=== PATIENT | male | born 1945 | race Caucasian/White ===

== ENCOUNTER 2019-09-24 09:30 | Inpatient (IN) | payer OTHER ==
[~2019-09-24] VITALS: Ht 175.3 cm; Wt 88.5 kg
[2019-09-24 10:19] LABS: CARBON DIOXIDE 28 mmol/L (21-32); CHLORIDE 101 mmol/L (101-111); CREATININE 1.1 mg/dL (0.5-1.5); GLOMERULAR FILTR. RATE CALC 70 mL/min (>60); GLUCOSE,RANDOM 263 mg/dL (70-105); POTASSIUM 4.9 mmol/L (3.5-5.1); SODIUM SERUM 136 mmol/L (136-145); UREA NITROGEN, BLOOD 34 mg/dL (7-18)
[2019-09-24 10:23] LABS: ALANINE AMINOTRANSFERASE 110 U/L (12-78); ALBUMIN 2.1 g/dL (3.5-5.0); ASPARTATE AMINOTRANSFERASE 53 U/L (10-37); BILIRUBIN,DIRECT 0.6 mg/dL (0.0-0.3); BILIRUBIN,TOTAL 1.3 mg/dL (0.2-1.0); CREATINE KINASE, TOTAL 45 U/L (21-232); LIPASE < 50 U/L (114-286); TOTAL PROTEIN, SERUM 5.8 g/dL (6.0-8.3)
[2019-09-24 10:24] LABS: INR 1.44 (0.85-1.15); PARTIAL THROMBOPLASTIN TIME 44.7 SEC (26.3-35.5); PROTHROMBIN TIME 14.9 SEC (9.6-11.6)
[2019-09-24 10:31] LABS: BASOPHILS % (AUTO) 0.3 % (0.0-5.0); EOSINOPHILS % (AUTO) 1.3 % (0.0-8.0); HEMATOCRIT 31.4 % (42-54); LYMPHOCYTES % (AUTO) 32.1 % (21.0-51.0); MEAN CORPUSCULAR HEMOGLOBIN 29.6 pg (27.0-33.0); MEAN CORPUSCULAR VOLUME 87.3 fL (79-99); MONOCYTES % (AUTO) 4.6 % (3.0-13.0); NEUTROPHILS % (AUTO) 61.7 % (40.0-77.0); NUCLEATED RED BLOOD CELLS 0.2 % (0.0-0.19); PLATELET COUNT (AUTO) 104 K/uL (130-400); RED BLOOD CELL COUNT(AUTO) 3.59 MIL/uL (4.50-6.20)
[2019-09-24 10:34] LABS: WHITE BLOOD COUNT (AUTO) 0.3 K/uL (4.8-10.8)
[2019-09-24] MEDS ORDERED: ONDANSETRON HCL 4 MG/2 ML VIAL ONE (10:46)
[2019-09-24] MEDS ORDERED: ZOSYN 3.375GM+NS 50ML 50 ML IV ONE (11:13)
[2019-09-24] MEDS ORDERED: SODIUM CHLORIDE 0.9% 500ML 500 ML IV ONE (11:14)
[2019-09-24] MEDS: TBO-FILGRASTIM 480 MCG/0.8 ML ML SQ SCH (11:30)
[2019-09-24] MEDS ORDERED: TBO-FILGRASTIM 480 MCG/0.8 ML ML SQ SCH (11:30)
[2019-09-24] MEDS ORDERED: SODIUM CHLORIDE 0.9% 1000ML 1,000 ML IV ONE ×3 (13:02→18:13)
[2019-09-24] MEDS ORDERED: DEXAMETHASONE SOD PHOSPHATE 10MG/ML 1ML VIAL ONE (13:47)
[2019-09-24] MEDS ORDERED: METOCLOPRAMIDE 10 MG/2 ML VIAL ONE (13:47)
[2019-09-24] MEDS ORDERED: MORPHINE SULFATE 4 MG/1ML SYG IV PRN (14:30)
[2019-09-24] MEDS ORDERED: ONDANSETRON HCL 4 MG/2 ML VIAL IVP PRN (14:30)
[2019-09-24] MEDS ORDERED: ACETAMINOPHEN 325 MG TAB PO PRN (14:30)
[2019-09-24] MEDS ORDERED: MORPHINE SULFATE 2 MG/ML 1ML SYG IVP PRN (14:30)
[2019-09-24] MEDS ORDERED: MORPHINE SULFATE 4 MG/1ML SYG ONE (16:10)
[2019-09-24 16:23] LABS: APPEARANCE,URINE Clear (CLEAR); BILIRUBIN,URINE Small (NEGATIVE); COLOR,URINE Dark Yellow (YELLOW); GLUCOSE, URINE (UA) TRACE mg/dL (NEGATIVE); KETONES,URINE Trace mg/dL (NEGATIVE); LEUKOCYTE ESTERASE ,URINE Trace (NEGATIVE); NITRATE,URINE Negative (NEGATIVE); OCCULT BLOOD,URINE Negative (NEGATIVE); PH,URINE 5.5 (5.0-8.0); PROTEIN,URINE POS 1+ mg/dL (NEGATIVE)
[2019-09-24 16:58] LABS: BACTERIA,URINE Few /HPF (None Seen)
[2019-09-24 16:59] LABS: MUCUS,URINE Few LPF (None Seen)
[2019-09-24] MEDS ORDERED: ACETAMINOPHEN ELIXIR 650 MG/20.3 ML UDCUP ONE (17:11)
[2019-09-24] MEDS ORDERED: METOCLOPRAMIDE 10 MG/2 ML VIAL IVP PRN (18:15)
[2019-09-24] MEDS ORDERED: PANTOPRAZOLE SODIUM 80 MG in NS 100ML IVP SCH (18:15)
[2019-09-24] MEDS ORDERED: OCTREOTIDE ACETATE 500 MCG in SODIUM CHLORIDE 0.9% 97.5 ML IV PRN (18:15)
[2019-09-24] MEDS ORDERED: MAG HYDROX/AL HYDROX/SIMETH 30 ML, LIDOCAINE HCL 2% VISCOUS 30 ML, DIPHENHYDRAMINE HCL ... PO PRN ×3 (18:15)
[2019-09-24] MEDS: SODIUM CHLORIDE 0.9% 1000ML 1,000 ML IV SCH (21:20)
[2019-09-24] MEDS ORDERED: NOREPINEPHRINE BITARTRATE 1 MG/1 ML ML IV ONE (22:03)
[2019-09-24] MEDS ORDERED: SODIUM CHLORIDE 0.9% 250 ML IV ONE (22:04)
[2019-09-24 23:24] VITALS: BP 88/49
[2019-09-24 23:31] VITALS: BP 81/47
[2019-09-24 23:45] VITALS: BP 79/44
[2019-09-25] VITALS (32 sets, daily range): BP systolic 81–145; BP diastolic 41–73
[2019-09-25 00:02] LABS: HEMATOCRIT 29.5 % (42-54)
[2019-09-25] MEDS: ZOSYN 3.375GM+NS 50ML 50 ML IV SCH ×4 (01:54→23:53)
[2019-09-25] MEDS ORDERED: LIDOCAINE HCL 2% VISCOUS 15 ML UDCUP ONE (02:34)
[2019-09-25] MEDS ORDERED: MAG HYDROX/AL HYDROX/SIMETH ES 30 ML SUSP UDCUP ONE (02:35)
[2019-09-25] MEDS ORDERED: SODIUM CHLORIDE 0.9% 200 ML IV ONE (04:05)
[2019-09-25] MEDS ORDERED: OCTREOTIDE ACETATE 200 MCG/ML 5 ML VIAL ONE (04:37)
[2019-09-25] MEDS: SODIUM CHLORIDE 0.9% 1000ML 1,000 ML IV SCH ×6 (06:22→22:18)
[2019-09-25] MEDS: TBO-FILGRASTIM 480 MCG/0.8 ML ML SQ SCH (08:42)
[2019-09-25] MEDS ORDERED: LOPERAMIDE HCL 2 MG CAP PO PRN (11:15)
[2019-09-25] MEDS ORDERED: LOPERAMIDE HCL 2 MG CAP PO SCH (12:45)
[2019-09-25] MEDS ORDERED: FAMO20TA8 PO (13:12)
[2019-09-25] MEDS ORDERED: LOPE2CAP PO (13:12)
[2019-09-25] MEDS ORDERED: CREON12 PO (13:12)
[2019-09-25] MEDS ORDERED: TRAM-355 PO (13:12)
[2019-09-25] MEDS ORDERED: PANT40TA25 PO (13:12)
[2019-09-25] MEDS ORDERED: METF-446 PO (13:12)
[2019-09-25] MEDS ORDERED: GUAI400T79 PO (13:12)
[2019-09-25] MEDS ORDERED: ATOR10 PO (13:12)
[2019-09-25] MEDS ORDERED: APIX5TAB PO (13:12)
[2019-09-25] MEDS ORDERED: ONDA8TAB12 PO (13:12)
[2019-09-25] MEDS ORDERED: SLOMG PO (13:12)
[2019-09-25] MEDS ORDERED: LOSA100T58 PO (13:12)
--- NOTE | 2019-09-25 16:50 | NUR ---
DC Plan Discussed dcp with patient and daughter Richa at bedside. Patient deferred to daughter to answer questions. States independent up to a few months ago. Now has fallen in last 6 months. Known diagnosis of Stage IV Pancreatic CA. Patient hiccuping during interview. CM reported this to bedside nurse MYNOR who stated PMD pending to order thorazine. Updated patient and daughter regarding this. Case discussed with PMD. States to follow oncologies recommendations. Anticipate dcp home with or without hospice vs SNF/IRU. CD Addendum: 09/25/19 at 1914 by REMINGTON TURNER CM Amended: Links added.
[2019-09-25] MEDS: PANTOPRAZOLE 40 MG/VIAL IVP SCH (20:14)
[2019-09-25] MEDS ORDERED: SODIUM CHLORIDE 3% FOR INHALATION 4 ML/AMP VIAL.NEB IH ONE (21:38)
[2019-09-26] VITALS (43 sets, daily range): BP systolic 69–132; BP diastolic 28–73
[2019-09-26] MEDS: SODIUM CHLORIDE 0.9% 1000ML 1,000 ML IV SCH ×6 (00:35→23:41)
[2019-09-26] MEDS ORDERED: SODIUM CHLORIDE 3% FOR INHALATION 4 ML/AMP VIAL.NEB IH ONE (01:45)
[2019-09-26 03:43] LABS: BASOPHILS % (AUTO) 0.1 % (0.0-5.0); EOSINOPHILS % (AUTO) 0.1 % (0.0-8.0); HEMATOCRIT 27.3 % (42-54); LYMPHOCYTES % (AUTO) 21.5 % (21.0-51.0); MEAN CORPUSCULAR HEMOGLOBIN 30.1 pg (27.0-33.0); MEAN CORPUSCULAR HGB CONC 34.2 g/dL (32.0-36.0); MEAN CORPUSCULAR VOLUME 88.1 fL (79-99); MONOCYTES % (AUTO) 3.9 % (3.0-13.0); NEUTROPHILS % (AUTO) 74.4 % (40.0-77.0); NUCLEATED RED BLOOD CELLS 1.4 % (0.0-0.19); PLATELET COUNT (AUTO) 94 K/uL (130-400)
[2019-09-26 03:47] LABS: WHITE BLOOD COUNT (AUTO) 0.5 K/uL (4.8-10.8)
[2019-09-26 03:59] LABS: ALBUMIN 1.5 g/dL (3.5-5.0); BILIRUBIN,TOTAL 0.7 mg/dL (0.2-1.0); CREATININE 0.9 mg/dL (0.5-1.5); MAGNESIUM 1.9 mg/dL (1.80-2.40); PHOSPHORUS 1.8 mg/dL (2.5-4.9); POTASSIUM 3.5 mmol/L (3.5-5.1); TOTAL PROTEIN, SERUM 4.7 g/dL (6.0-8.3)
--- NOTE | 2019-09-26 05:55 | NUR ---
Patient straining to use urinal. Went into SVT 170's sustained. Call placed Hospitalist lubrication technician Hanh Emanuel. Patient converted back to sinus rate 90's to low 100's. Patient talking, moving all extremities. No c/o pain, sob. No new orders at this time
[2019-09-26] MEDS: NOREPINEPHRINE 4MG/NS 250ML IV SCH ×4 (06:50→23:44)
[2019-09-26] MEDS ORDERED: LIDOCAINE HCL-MPF 1% 2ML VIAL IV PRN (08:00)
[2019-09-26] MEDS ORDERED: POTASSIUM PHOS 15 mMOL+NS250ML 250 ML IV PRN (08:00)
[2019-09-26] MEDS ORDERED: POTASSIUM CHLORIDE 20MEQ/100ML 100 ML IV PRN (08:00)
[2019-09-26] MEDS ORDERED: HYDROMORPHONE 1 MG/1 ML AMP IVP PRN (08:00)
[2019-09-26] MEDS ORDERED: MAGNESIUM 2GM PREMIX 50ML 50 ML IV PRN (08:00)
[2019-09-26] MEDS: PANTOPRAZOLE 40 MG/VIAL IVP SCH ×2 (08:05→20:13)
[2019-09-26] MEDS: TBO-FILGRASTIM 480 MCG/0.8 ML ML SQ SCH (08:18)
[2019-09-26] MEDS: ZOSYN 3.375GM+NS 50ML 50 ML IV SCH ×2 (08:19→18:22)
--- NOTE | 2019-09-26 09:45 | NUR ---
Geraldine DIRECTOR OF MANUFACTURING OPERATIONS here to see patient. Made aware of Hypotension, and Sinus Tach/SVT episodes. Also, requested cortisol level in an effort to see if steroids is beneficial at this time. Stated she feels steroids is appropriate at this time and will place order for steroids. Also, she spoke c/ and Son at bedside in an effort to give them a full idea of what is going on/Presentation of patient. Family is contemplating withdrawing pressors. However, all Family will be here tomorrow and will address it with them. Pending for family to give ok to withdraw care at this time.
[2019-09-26] MEDS ORDERED: HYDROMORPHONE HCL 0.5 MG/0.5 ML ML IVP PRN (10:00)
[2019-09-26] MEDS ORDERED: VANCOMYCIN PROTOCOL PER PHARMACY IV SCH (10:00)
[2019-09-26] MEDS ORDERED: VANCOMYCIN 1.5 GM in SODIUM CHLORIDE 0.9% 250 ML IV ONE (10:00)
[2019-09-26 10:45] LABS: INR 1.33 (0.85-1.15); PARTIAL THROMBOPLASTIN TIME 47.5 SEC (26.3-35.5); PROTHROMBIN TIME 13.8 SEC (9.6-11.6)
[2019-09-26] MEDS ORDERED: METHYLPREDNISOLONE SOD SUCC 125MG/2ML VIAL IVP SCH (10:45)
--- NOTE | 2019-09-26 10:45 | NUR ---
Dr. Lyon here to see patient. Made aware of 2,250ml bolus over PM shift. Stated to give another 2L bolus. Made aware of patient DNR status as well as Levophed on board.
[2019-09-26] MEDS ORDERED: PHARMACY COMMUNICATION MISC SCH (11:00)
--- NOTE | 2019-09-26 11:10 | NUR ---
Called pharmacy: Spoke to Heather. Made aware of Pending Leoncio Perry, and Requested another bag of Levophed 4mg/250ml. Pending medications to be brought at this time.
[2019-09-26] MEDS ORDERED: SODIUM CHLORIDE 0.9% 1000ML 1,000 ML IV SCH (11:15)
[2019-09-26] MEDS ORDERED: COMPOUND IV REFRIGERATED 1 EACH IVSOLN MISC PRN (11:15)
--- NOTE | 2019-09-26 13:45 | NUR ---
PICC LINE INSERTION PICC LINE NURSE HERE TO PLACE PICC LINE. CONSENT COMPLETED C/ , C/ BOTH PICC LINE NURSE AND PRIMARY NURSE PRESENT. FAMILY ASKED TO WAIT APPROXIMATELY 1HR FOR INSERTION AND PLACEMENT VERIFICATION C/ CXR 1VIEW. WILL MAKE FAMILY AWARE ONCE PICC LINE INSERTION IS DONE AND PLACEMENT IS CONFIRMED.
[2019-09-26] MEDS: FLUCONAZOLE 400 MG/NS 200 ML 200 ML IV SCH (16:00)
--- NOTE | 2019-09-26 16:00 | NUR ---
Dr. Thompson came to see patient. Made aware of status on Levophed increasing from PM shift. NS bolus's X3. Liquid BM's c/ Neg C-Diff. Also, made aware of possible withdrawl of care tomorrow post family talk.-As per . NO changes in [place] at this time.
[2019-09-26] MEDS: METHYLPREDNISOLONE SOD SUCC 40MG/ML 1ML IVP SCH (16:17)
--- NOTE | 2019-09-26 16:54 | NUR ---
Wound Photo Taken Patient in brief. Cleaned patient, applied Allivyn to coccyx, and sacrum. Stage II cleaned, and covered c/ Allivyn. Photo in chart. Family made aware.
--- NOTE | 2019-09-26 17:42 | NUR ---
Pain Management asked if I can give pain medication to patient. Patient asked if he was in pain. Patient stated no pain at this time. Will evaluate again at a later time.
--- NOTE | 2019-09-26 19:03 | NUR ---
HandOff: Report given to Julienne Del Cid RN
[2019-09-26] MEDS: HYDROMORPHONE 1 MG/1 ML AMP IVP PRN (19:09)
[2019-09-26] MEDS: VANCOMYCIN 750MG + NS 250 ML IV SCH ×2 (20:14)
--- NOTE | 2019-09-26 22:58 | NUR ---
Tim RHODES NP PATIENT WITH ELEVATED HR 142 -EKG CONFIRMED A FIB RVR, BP 90/52ON LEVOPHED @ 16 MCG/MIN. NEW ORDER FOR CARDIZEM 30 MG PO X 1.
[2019-09-26] MEDS ORDERED: DILTIAZEM HCL 60 MG TABLET PO SCH (23:00)
[2019-09-27] VITALS (40 sets, daily range): BP systolic 79–194; BP diastolic 39–103
[2019-09-27] MEDS: ZOSYN 3.375GM+NS 50ML 50 ML IV SCH ×2 (01:15→08:24)
[2019-09-27] MEDS: METHYLPREDNISOLONE SOD SUCC 40MG/ML 1ML IVP SCH ×2 (01:15→08:18)
[2019-09-27 03:48] LABS: BASOPHILS % (AUTO) 0.1 % (0.0-5.0); HEMATOCRIT 29.2 % (42-54); LYMPHOCYTES % (AUTO) 7.5 % (21.0-51.0); MEAN CORPUSCULAR HEMOGLOBIN 29.5 pg (27.0-33.0); MEAN CORPUSCULAR HGB CONC 33.7 g/dL (32.0-36.0); MEAN CORPUSCULAR VOLUME 87.6 fL (79-99); NEUTROPHILS % (AUTO) 89.4 % (40.0-77.0); PLATELET COUNT (AUTO) 109 K/uL (130-400); RED BLOOD CELL COUNT(AUTO) 3.34 MIL/uL (4.50-6.20); RED CELL DISTRIBUTION WIDTH 13.9 % (11.0-15.5); WHITE BLOOD COUNT (AUTO) 1.4 K/uL (4.8-10.8)
[2019-09-27] MEDS: HYDROMORPHONE 1 MG/1 ML AMP IVP PRN ×3 (03:53→17:15)
[2019-09-27 04:01] LABS: CREATININE 0.9 mg/dL (0.5-1.5); POTASSIUM 3.8 mmol/L (3.5-5.1)
[2019-09-27] MEDS: NOREPINEPHRINE 4MG/NS 250ML IV SCH ×3 (05:12→15:30)
[2019-09-27] MEDS: PANTOPRAZOLE 40 MG/VIAL IVP SCH (08:18)
[2019-09-27] MEDS: TBO-FILGRASTIM 480 MCG/0.8 ML ML SQ SCH (08:22)
[2019-09-27] MEDS: VANCOMYCIN 750MG + NS 250 ML IV SCH ×2 (08:24)
[2019-09-27] MEDS: FLUCONAZOLE 400 MG/NS 200 ML 200 ML IV SCH (12:36)
[2019-09-27] MEDS: SODIUM CHLORIDE 0.9% 1000ML 1,000 ML IV SCH ×2 (12:36→13:37)
[2019-09-27] MEDS ORDERED: LORAZEPAM 2 MG/ML 1 ML VIAL IM PRN (13:00)
[2019-09-27] MEDS: MORPHINE SULFATE 2 MG/ML 1ML SYG IVP PRN ×2 (13:37→16:20)
--- NOTE | 2019-09-27 14:49 | NUR ---
EMOTIONAL SUPPORT Sw met with pt's family. Per Daughter in law, family is waiting for 1 last grand daughter to arrive, and she is 200 miles away still. Family states plan is to stop medication and start comfort measures. per family, doctors do not feel pt will survive very long after medications are stopped. Sw educated on inpt hospice. Plan is to wait 24 hrs after meds are stopped and see if pt survives. If he does, Sw to begin inpt hospice referral. Sw to f/u and assist as needed
[2019-09-27] MEDS ORDERED: IPRATROPIUM 0.5 MG/2.5 ML INH IH SCH (15:15)
--- NOTE | 2019-09-27 15:45 | NUR ---
Patient Verbalized Consent to remove Medications/Measures. Patient stated to me and in room at bedside that he wanted to stop all life supporting medication/measures and was ready to go.
--- NOTE | 2019-09-27 16:00 | NUR ---
Withdrawal of Life Support Consent signed c/ Primary Nurse. She stated ok to remove Levophed. Made aware that this medication was on board to support blood pressure. Stated ok to remove medication.
--- NOTE | 2019-09-27 16:16 | NUR ---
All medications stopped in an effort to facilitate patients/ 's wishes.
[2019-09-27] MEDS: LORAZEPAM 2 MG/ML 1 ML VIAL IVP PRN ×3 (16:20→23:06)
[2019-09-27] MEDS ORDERED: PHARMACY COMMUNICATION MISC SCH (17:15)
[2019-09-27] MEDS ORDERED: NALOXONE HCL 0.4 MG/1 ML ML IVP PRN (18:30)
[2019-09-27] MEDS ORDERED: MORPHINE-NS 50 MG/50 ML 50 ML IV PRN (18:30)
--- NOTE | 2019-09-27 19:12 | NUR ---
report Report given to Julienne Del Cid RN
[2019-09-27] MEDS ORDERED: GLYCOPYRROLATE 1 MG/5 ML SYRINGE IM PRN (22:15)
[2019-09-28 00:02] VITALS: BP 110/59
[2019-09-28 01:02] VITALS: BP 110/67
[2019-09-28 01:32] VITALS: BP 115/61
[2019-09-28] MEDS: LORAZEPAM 2 MG/ML 1 ML VIAL IVP PRN ×5 (02:12→10:22)
[2019-09-28 04:23] VITALS: BP 109/71
--- NOTE | 2019-09-28 04:45 | NUR ---
NOTE PATIENT ARRIVED FROM SECOND FLOOD VIA BED. HE IS RESTING AND CALM. GOT RESTLESS FOR A FEW MINUTES AFTER TRANSFERRING BED AND CALMED DOWN AFTER A FEW MINUTES. NO FAMILY AT THIS TIME HERE WITH HIM. HE HAS A DIAPER AND WAS NOTIFIED THAT HE HAD A BM AND WAS CHANGED JUST PRIOR TO COMING OVER. PICC LINE ON RIGHT ARM WITH EGGS INSPECTOR MORPHINE CONTINUOUS INFUSION 2ML/HR. DRESSING CLEAN AND INTACT.
--- NOTE | 2019-09-28 04:45 | NUR ---
PATIENT TRANSFERRED TO ROOM 326. FAMILY AT BEDSIDE AWARE OF TRANSFER. REPORT GIVEN TO SYED ORTIZ. PATIENT CALM AND COMFORTABLE VS STABLE.
[2019-09-28 08:00] VITALS: BP 94/57
--- NOTE | 2019-09-28 10:38 | NUR ---
[facility] met with family and educated on In hospice. Family is agreeable to referral for eval and admit if accepted. Rojas called Karol at [place] and made referral. Pt info faxed to office Karol is here calling to family and Sayda LYNCH is on her way to eval.
== END 2019-09-28 10:29 | disposition hospice, inpatient (51) | DRG 871 ==
LOC: EDH 09:30 → UNDOADMIN 11:20 → EDHIP 11:20 → 2CH 23:05 → 3DH 09-28 04:51
PROVIDERS: ADMIT Internal Medicine; ATTEND Internal Medicine
PROC: 02HV33Z Insertion of Infusion Device into Superior Vena Cava, Percutaneous Approach (ICD-10-PCS; principal; 2019-09-26)
DX: A41.9 Sepsis, unspecified organism (principal); E43 Unspecified severe protein-calorie malnutrition; R65.21 Severe sepsis with septic shock; D61.810 Antineoplastic chemotherapy induced pancytopenia; K92.2 Gastrointestinal hemorrhage, unspecified; C25.9 Malignant neoplasm of pancreas, unspecified; A09 Infectious gastroenteritis and colitis, unspecified; T45.1X5A Adverse effect of antineoplastic and immunosuppressive drugs, initial encounter; R62.7 Adult failure to thrive; K12.1 Other forms of stomatitis; E11.9 Type 2 diabetes mellitus without complications; E78.00 Pure hypercholesterolemia, unspecified; D69.59 Other secondary thrombocytopenia; Z51.5 Encounter for palliative care; E86.0 Dehydration; E86.1 Hypovolemia; E87.6 Hypokalemia; J44.9 Chronic obstructive pulmonary disease, unspecified; R50.81 Fever presenting with conditions classified elsewhere; I10 Essential (primary) hypertension; F32.9 Major depressive disorder, single episode, unspecified; D64.81 Anemia due to antineoplastic chemotherapy; E78.5 Hyperlipidemia, unspecified; Z87.01 Personal history of pneumonia (recurrent); Z87.891 Personal history of nicotine dependence; Z88.6 Allergy status to analgesic agent; Z88.8 Allergy status to other drugs, medicaments and biological substances; Z68.28 Body mass index [BMI] 28.0-28.9, adult; Z80.41 Family history of malignant neoplasm of ovary; Z80.0 Family history of malignant neoplasm of digestive organs; Y92.89 Other specified places as the place of occurrence of the external cause; Z82.49 Family history of ischemic heart disease and other diseases of the circulatory system
CPT/HCPCS: 36415; 71045; 80048; 80053; 80076; 81001; 82270; 82550; 82948; 83690; 83735; 84100; 84145; 84484; 85014; 85018; 85025; 85060; 85610; 85730; 86850; 86900; 86901; 87040; 87046; 87071; 87077; 87186; 87205; 87486; 87493; 87581; 87633; 87798; 93005; 94640; C1751; C1894; C9113; G0378; J1100; J1170; J1450; J2060; J2270; J2354; J2405; J2543; J2765; J2920; J2930; J3370; J3475; J3480; J3490; J7030; J7040; Q0161